=== PATIENT | male | born 1945 | race Hispanic/Latino ===

== ENCOUNTER 2017-02-07 09:07 | Emergency (ER) | payer MEDICARE, BC ==
[2017-02-07 09:08] VITALS: BMI 27.1
[2017-02-07 09:27] VITALS: TEMP 97.8; O2SAT 96
--- NOTE | 2017-02-07 10:07 | C.PDOC ---
History Of Present Illness 71 y/o male c/o cold, sweats, sore throat, and cough for 2 days. Patient has a hx of prostate issues. Eriberto fever, (+) chills, nausea, or vomiting. No ear pain or abdominal pain. Time Seen by Provider: 02/07/17 09:34 Chief Complaint (Nursing): Flu-like Symptoms History Per: Patient History/Exam Limitations: no limitations Onset/Duration Of Symptoms: Days (2) Current Symptoms Are (Timing): Still Present Location Of Pain: Throat Associated Symptoms: Cough. denies: Fever, Chills, Nausea, Vomiting, Diarrhea Ear Symptoms: Bilateral: None Severity: Mild Recent travel outside of the [place]: No Additional History Per: Patient Past Medical History Reviewed: Historical Data, Nursing Documentation, Vital Signs Vital Signs: Last Vital Signs Temp 97.8 F 02/07/17 12:08 Pulse 94 H 02/07/17 12:08 Resp 20 02/07/17 12:08 BP 119/65 02/07/17 12:08 Pulse Ox 96 02/07/17 12:08 - Medical History PMH: Anxiety, Benign Prostatic Hyperplasia, HTN Family History: States: Unknown Family Hx - Social History Hx Tobacco Use: No Hx Alcohol Use: No Hx Substance Use: No - Immunization History Hx Tetanus Toxoid Vaccination: No Hx Influenza Vaccination: No Hx Pneumococcal Vaccination: No Review Of Systems Except As Marked, All Systems Reviewed And Found Negative. Constitutional: Positive for: Chills, Sweats, Other (Cold). Negative for: Fever ENT: Positive for: Throat Pain. Negative for: Ear Pain Respiratory: Positive for: Cough Gastrointestinal: Negative for: Nausea, Vomiting, Abdominal Pain, Diarrhea Psych: Positive for: Anxiety Physical Exam - Physical Exam Appears: Non-toxic, No Acute Distress Skin: Warm, Dry Head: Atraumatic, Normacephalic Ear(s): Bilateral: Normal Oral Mucosa: Moist Throat: Normal, No Erythema Neck: Supple Cardiovascular: Rhythm Regular, No Murmur Respiratory: Normal Breath Sounds, No Rales, No Rhonchi, No Wheezing Gastrointestinal/Abdominal: Soft, No Tenderness Extremity: Normal ROM Neurological/Psych: Oriented x3 Gait: Steady ED Course And Treatment - Laboratory Results Result Diagrams: 02/07/17 10:30 02/07/17 10:30 Lab Interpretation: No Acute Changes ECG: Interpreted By Me ECG Rhythm: Sinus Rhythm ECG Interpretation: No Acute Changes Rate From EC O2 Sat by Pulse Oximetry: 96 (RA) Pulse Ox Interpretation: Normal - Radiology CXR: Interpreted by Me CXR Interpretation: Yes: No Acute Disease Progress Note: On re-evaluation no complaints, lungs clear. ambulating with steady gait Reassessment Condition: Unchanged Medical Decision Making Medical Decision Making: Plans: * blood work * EKG * CXR * UA * Serology * IV fluids Disposition Counseled Patient/Family Regarding: Studies Performed, Diagnosis, Need For Followup - Disposition Referrals: Morgan Zelaya DO [Non-Staff] - Disposition: HOME/ ROUTINE Disposition Time: 12:00 Condition: STABLE Additional Instructions: Return to ED if any increase symptoms Instructions: Upper Respiratory Infection (ED), Viral Syndrome (ED) Forms: [facility] [employer] (Faroese) - POA Present On Arrival: None - Clinical Impression Clinical Impression: Influenza-like illness - Scribe Statement The provider has reviewed the documentation as recorded by the Scribe Jia [email or web address] All medical record entries made by the Scribe were at my direction and personally dictated by me. I have reviewed the chart and agree that the record accurately reflects my personal performance of the history, physical exam, medical decision making, and the department course for this patient. I have also personally directed, reviewed, and agree with the discharge instructions and disposition.
[2017-02-07 10:41] LABS: BASO # 0.1 K/uL (0.0-0.2); BASO % 0.7 % (0.0-2.0); EOS % 0.3 % (0.0-4.0); HEMATOCRIT 51.8 % (35.0-51.0); LYMPH # 1.4 K/uL (1.0-4.3); LYMPH % 15.5 % (20.0-40.0); MEAN CELL VOLUME 92.1 fL (80.0-94.0); MEAN CORPUSCULAR HEMOGLOBIN 31.5 pg (27.0-31.0); MEAN CORPUSCULAR HGB CONC 34.2 g/dL (33.0-37.0); MEAN PLATELET VOLUME 7.9 fL (7.2-11.7); MONO # 0.9 K/uL (0.0-0.8); MONO % 9.8 % (0.0-10.0); WHITE BLOOD COUNT 9.1 K/uL (4.8-10.8)
[2017-02-07 10:50] LABS: URINE BILIRUBIN NEGATIVE (NEGATIVE); URINE BLOOD 1+ (NEGATIVE); URINE COLOR Yellow (YELLOW); URINE GLUCOSE (UA) NORMAL (Normal); URINE KETONE NEGATIVE (NEGATIVE); URINE LEUKOCYTE ESTERASE NEG Leu/uL (Negative); URINE PROTEIN NEGATIVE (NEGATIVE); URINE UROBILINOGEN NORMAL mg/dL (0.2-1.0); WBC URINE < 1 /hpf (0-5)
[2017-02-07 10:56] LABS: RBC URINE 1 /hpf (0-3)
--- NOTE | 2017-02-07 10:57 | RAD ---
HISTORY: SOB COMPARISON: Comparison is made to 05/31/2016 TECHNIQUE: Chest PA and lateral FINDINGS: LUNGS: No active pulmonary disease. PLEURA: No significant pleural effusion identified. No pneumothorax apparent. CARDIOVASCULAR: Normal. OSSEOUS STRUCTURES: No significant abnormalities. VISUALIZED UPPER ABDOMEN: Normal. OTHER FINDINGS: None. IMPRESSION: No active disease.
[2017-02-07 11:04] LABS: CHLORIDE 99 mmol/L (98-107)
[2017-02-07 11:05] LABS: POTASSIUM 4.5 mmol/L (3.6-5.2); SODIUM 135 mmol/L (132-148)
[2017-02-07 11:07] LABS: ALB/GLOB RATIO 1.2 (1.0-2.1); CARBON DIOXIDE 27 mmol/L (22-30); GFR AFRICAN-AMERICAN > 60; TOTAL PROTEIN 7.8 g/dL (6.3-8.3)
[2017-02-07 11:08] LABS: ALKALINE PHOSPHATASE 44 U/L (38-126); ALT/SGPT 46 U/L (21-72); AST/SGOT 36 U/L (17-59); BLOOD UREA NITROGEN 21 mg/dL (9-20); CALCIUM 9.8 mg/dl (8.6-10.4); GLUCOSE,RANDOM 91 mg/dL (75-110)
[2017-02-07 12:09] VITALS: BP 119/65; PULSE 94; RESP 20
--- NOTE | 2017-02-09 12:27 | CARD ---
APPROVED REPORT EKG Measurement Heart [id number] <Conclusion> Normal sinus rhythm Left axis deviation Abnormal ECG
== END 2017-02-07 12:21 | disposition home or self-care (01) ==
LOC: C.ER 09:07
DX: J11.1 Influenza due to unidentified influenza virus with other respiratory manifestations (principal)